=== PATIENT | female | born 1975 | race Caucasian/White ===

== ENCOUNTER 2019-10-29 13:18 | Emergency (ER) | payer OTHER, MEDICAID, SELFPAY ==
[2019-10-29] VITALS (14 sets, daily range): BP systolic 88–158; BP diastolic 52–86; PULSE 70–133; RESP 19–38; TEMP 36.4–36.8; O2SAT 97–99
--- NOTE | 2019-10-29 13:32 | ED_ITS ---
HPI - Psych <Lucinda Gunderson DO - Last Filed: 11/02/19 08:11> General Chief Complaint: Psychiatric Symptoms Stated Complaint: Out of control Time Seen by Provider: 10/29/19 13:28 Source: EMS Mode of arrival: EMS History of Present Illness HPI Narrative: Patient is a 43-year-old female brought in by police and the EMS have found in [facility] she apparently was out of control preaching running around in circles unwilling and unable to come in and be cooperative. She became combative and spitting. She was given 300 mg of IM ketamine at approximately 1:05 p.m.. She is currently under the influence of ketamine and unable to give appropriate history. No sign of trauma at this time. Very little is known about the patient. MD complaint: altered mental status Review of Systems <Lucinda Gunderson DO - Last Filed: 11/02/19 08:11> Review of Systems ROS Unobtainable: Unobtainable due to mental condition Exam <Lucinda Gunderson DO - Last Filed: 11/02/19 08:11> Initial Vital Signs Initial Vital Signs: Vital Signs Pulse Rate 132 H 10/29/19 13:24 Respiratory Rate 28 H 10/29/19 13:24 Pulse Oximetry 97 10/29/19 13:24 GENERAL: Moaning, alert HEENT: Head atraumatic,EOMI, pupils reactive, face symmetric, [moist] mucous mem branes CARDIOVASCULAR: Regular rate and rhythm without murmurs, rubs or gallops. RESPIRATORY: Breath sounds equal bilaterally, no wheezes rales or rhonchi. ABDOMEN: Soft, nontender. Normoactive bowel sounds all 4 quadrants. No guarding or rebound. EXTREMITIES: Normal range of motion, no clubbing or edema. Neurovascularly intact NEUROLOGICAL: Moving all extremities SKIN: Warm, dry, no laceration, no petechiae, no rashes or lesions. <Evangelista Peng DO - Last Filed: 10/30/19 05:35> Initial Vital Signs Initial Vital Signs: Vital Signs Pulse Rate 132 H 10/29/19 13:24 Respiratory Rate 28 H 10/29/19 13:24 Pulse Oximetry 97 10/29/19 13:24 <Kaleb Jeffries MD - Last Filed: 10/31/19 13:09> Initial Vital Signs Initial Vital Signs: Vital Signs Pulse Rate 132 H 10/29/19 13:24 Respiratory Rate 28 H 10/29/19 13:24 Pulse Oximetry 97 10/29/19 13:24 Course <Lucinda Gunderson DO - Last Filed: 11/02/19 08:11> Orders Ordered: Discontinued Medications Diphenhydramine HCl (Benadryl) 50 mg IV NOW ONE Stop: 10/29/19 14:06 Last Admin: 10/29/19 14:10 Dose: 50 mg Documented by: HARINDER Haloperidol (Haldol) 5 mg IM NOW ONE Stop: 10/29/19 14:06 Last Admin: 10/29/19 14:10 Dose: 5 mg Documented by: HARINDER Lorazepam (Ativan) 1 mg IV NOW ONE Stop: 10/29/19 13:43 Last Admin: 10/29/19 13:56 Dose: 1 mg Documented by: HARINDER Vital Signs Vital signs: Vital Signs - 8 hr 10/30/19 09:00 Pulse Rate 76 Respiratory Rate 16 Blood Pressure 131/64 Pulse Oximetry 100 <Evangelista Peng DO - Last Filed: 10/30/19 05:35> Orders Ordered: Discontinued Medications Diphenhydramine HCl (Benadryl) 50 mg IV NOW ONE Stop: 10/29/19 14:06 Last Admin: 10/29/19 14:10 Dose: 50 mg Documented by: HARINDER Haloperidol (Haldol) 5 mg IM NOW ONE Stop: 10/29/19 14:06 Last Admin: 10/29/19 14:10 Dose: 5 mg Documented by: HARINDER Lorazepam (Ativan) 1 mg IV NOW ONE Stop: 10/29/19 13:43 Last Admin: 10/29/19 13:56 Dose: 1 mg Documented by: HARINDER Vital Signs Vital signs: Vital Signs - 8 hr 10/30/19 09:00 Pulse Rate 76 Respiratory Rate 16 Blood Pressure 131/64 Pulse Oximetry 100 <Kaleb Jeffries MD - Last Filed: 10/31/19 13:09> Orders Ordered: Discontinued Medications Diphenhydramine HCl (Benadryl) 50 mg IV NOW ONE Stop: 10/29/19 14:06 Last Admin: 10/29/19 14:10 Dose: 50 mg Documented by: HARINDER Haloperidol (Haldol) 5 mg IM NOW ONE Stop: 10/29/19 14:06 Last Admin: 10/29/19 14:10 Dose: 5 mg Documented by: HARINDER Lorazepam (Ativan) 1 mg IV NOW ONE Stop: 10/29/19 13:43 Last Admin: 10/29/19 13:56 Dose: 1 mg Documented by: HARINDER Reevaluation(s) Reevaluation #1: Patient is awake alert orient times 4. Is not not combative denies any SI or HI. No auditory or visual hallucinations at this time. Is not tangential. No pressured speech. Patient is pleasant and cooperative. Time: 10:29 Consultations Consultation #1: DCR has returned this morning and, Logan, has evaluated patient and deemed that patient does not qualify for the restraint/DCR. Patient has follow-up on Tuesday. Patient is post be on lithium. I spoke with Logan that it would be advisable patient to be admitted today as medications may be only temporary sober given last night. Patient does not comply with treatment plan prior to arrival here. Time: 10:29 Vital Signs Vital signs: Vital Signs - 8 hr 10/30/19 09:00 Pulse Rate 76 Respiratory Rate 16 Blood Pressure 131/64 Pulse Oximetry 100 MDM - Psych <Lucinda Gunderson, DO - Last Filed: 11/02/19 08:11> Lab Data Attestation: I reviewed the patient's lab results. Result diagrams: 10/29/19 13:40 10/29/19 13:40 Labs: Lab Results 10/29/19 10/29/19 10/29/19 Range/Units 13:40 13:40 13:40 WBC 8.9 (4.5-11.0) X10^3/uL RBC 4.52 (4.0-5.2) X10^6/uL Hgb 13.7 (12.0-16.0) g/dL Hct 40.9 (36-46) % MCV 90.5 (80-100) fL MCH 30.3 (26-34) PG MCHC 33.4 (30-36) % RDW 13.5 (11.6-14.8) % Plt Count 461 H (150-400) X10^3/uL Neut % (Auto) 81.0 H (50-75) % Lymph % (Auto) 16.2 L (25-40) % Clar[place] % (Auto) 2.5 L (3-14) % Eos % (Auto) 0.1 L (2-4) % Baso % (Auto) 0.2 (0-2) % Neut # (Auto) 7200 H (9437-4566) /uL Lymph # (Auto) 1400 (3015-4942) /uL Clarion # (Auto) 200 (0-900) /uL Eos # (Auto) 0 (0-450) /uL Baso # (Auto) 0 (0-100) /uL Sodium 140 (137-145) mmol/L Potassium 3.5 (3.4-5.1) mmol/L Chloride 104 (98-107) mmol/L Carbon Dioxide 23 (22-32) mmol/L BUN 20 H (7-17) mg/dL Creatinine 1.08 H (0.52-1.04) mg/dL Estimated GFR 55.1 L (>60) mL/min BUN/Creatinine Ratio 18.5 (6-22) Glucose 242 H (70-100) mg/dL Calcium 9.9 (8.4-10.2) mg/dL Total Bilirubin 0.6 (0.2-1.3) mg/dL AST 30 (14-36) IU/L ALT 32 (<35) IU/L Alkaline Phosphatase 94 (38-126) U/L Total Protein 8.0 (6.3-8.2) g/dL Albumin 4.8 (3.5-5.0) g/dL Globulin 3.2 (1.7-4.1) g/dL Albumin/Globulin Ratio 1.5 (1.0-2.8) Serum , Qual (Negative) Salicylates < 1.0 (<20) mg/dL U Opiates 300ng/mL cut (Negative) Ur Oxycodone Screen (Negative) Urine Methadone Screen (Negative) Acetaminophen < 10 L (10-30) ug/mL Ur Barbiturates Screen (Negative) U Tricyclic Antidepress (Negative) Ur Phencyclidine Scrn (Negative) Ur Amphetamines Screen (Negative) U Methamphetamines Scrn (Negative) Ur MDMA Scrn (Ecstasy) (Negative) U Benzodiazepines Scrn (Negative) [place] < 0.2 L (0.6-1.2) mmol/L Urine Cocaine Screen (Negative) U Marijuana (THC) Screen (Negative) Ethyl Alcohol < 10 ( - 10) mg/dL COVID-19 PCR (Negative) 10/29/19 10/29/19 10/30/19 Range/Units 13:40 14:57 01:12 WBC (4.5-11.0) X10^3/uL RBC (4.0-5.2) X10^6/uL Hgb (12.0-16.0) g/dL Hct (36-46) % MCV (80-100) fL MCH (26-34) PG MCHC (30-36) % RDW (11.6-14.8) % Plt Count (150-400) X10^3/uL Neut % (Auto) (50-75) % Lymph % (Auto) (25-40) % Clarion % (Auto) (3-14) % Eos % (Auto) (2-4) % Baso % (Auto) (0-2) % Neut # (Auto) (9803-0692) /uL Lymph # (Auto) (2336-3508) /uL Clarion # (Auto) (0-900) /uL Eos # (Auto) (0-450) /uL Baso # (Auto) (0-100) /uL Sodium (137-145) mmol/L Potassium (3.4-5.1) mmol/L Chloride (98-107) mmol/L Carbon Dioxide (22-32) mmol/L BUN (7-17) mg/dL Creatinine (0.52-1.04) mg/dL Estimated GFR (>60) mL/min BUN/Creatinine Ratio (6-22) Glucose (70-100) mg/dL Calcium (8.4-10.2) mg/dL Total Bilirubin (0.2-1.3) mg/dL AST (14-36) IU/L ALT (<35) IU/L Alkaline Phosphatase (38-126) U/L Total Protein (6.3-8.2) g/dL Albumin (3.5-5.0) g/dL Globulin (1.7-4.1) g/dL Albumin/Globulin Ratio (1.0-2.8) Serum , Qual Negative (Negative) Salicylates (<20) mg/dL U Opiates 300ng/mL cut Positive H (Negative) Ur Oxycodone Screen Negative (Negative) Urine Methadone Screen Negative (Negative) Acetaminophen (10-30) ug/mL Ur Barbiturates Screen Negative (Negative) U Tricyclic Antidepress Negative (Negative) Ur Phencyclidine Scrn Negative (Negative) Ur Amphetamines Screen Negative (Negative) U Methamphetamines Scrn Negative (Negative) Ur MDMA Scrn (Ecstasy) Negative (Negative) U Benzodiazepines Scrn Negative (Negative) [place] (0.6-1.2) mmol/L Urine Cocaine Screen Negative (Negative) U Marijuana (THC) Screen Positive H (Negative) Ethyl Alcohol ( - 10) mg/dL COVID-19 PCR Negative (Negative) MDM Narrative Medical decision making narrative: The patient awake talking nonsense of very confused likely still under ketamine. Moving arms trying to pull out IV she is placed into soft point restraints. She is given Ativan Haldol and Benadryl to help calm her and from pulling out her IV Patient is sleeping Signed out to Dr. Peng for further medical management <Evangelista Peng, DO - Last Filed: 10/30/19 05:35> Lab Data Labs: Lab Results 10/29/19 10/29/19 10/29/19 Range/Units 13:40 13:40 13:40 WBC 8.9 (4.5-11.0) X10^3/uL RBC 4.52 (4.0-5.2) X10^6/uL Hgb 13.7 (12.0-16.0) g/dL Hct 40.9 (36-46) % MCV 90.5 (80-100) fL MCH 30.3 (26-34) PG MCHC 33.4 (30-36) % RDW 13.5 (11.6-14.8) % Plt Count 461 H (150-400) X10^3/uL Neut % (Auto) 81.0 H (50-75) % Lymph % (Auto) 16.2 L (25-40) % Clarion % (Auto) 2.5 L (3-14) % Eos % (Auto) 0.1 L (2-4) % Baso % (Auto) 0.2 (0-2) % Neut # (Auto) 7200 H (0556-9113) /uL Lymph # (Auto) 1400 (8823-1343) /uL Clarion # (Auto) 200 (0-900) /uL Eos # (Auto) 0 (0-450) /uL Baso # (Auto) 0 (0-100) /uL Sodium 140 (137-145) mmol/L Potassium 3.5 (3.4-5.1) mmol/L Chloride 104 (98-107) mmol/L Carbon Dioxide 23 (22-32) mmol/L BUN 20 H (7-17) mg/dL Creatinine 1.08 H (0.52-1.04) mg/dL Estimated GFR 55.1 L (>60) mL/min BUN/Creatinine Ratio 18.5 (6-22) Glucose 242 H (70-100) mg/dL Calcium 9.9 (8.4-10.2) mg/dL Total Bilirubin 0.6 (0.2-1.3) mg/dL AST 30 (14-36) IU/L ALT 32 (<35) IU/L Alkaline Phosphatase 94 (38-126) U/L Total Protein 8.0 (6.3-8.2) g/dL Albumin 4.8 (3.5-5.0) g/dL Globulin 3.2 (1.7-4.1) g/dL Albumin/Globulin Ratio 1.5 (1.0-2.8) Serum , Qual (Negative) Salicylates < 1.0 (<20) mg/dL U Opiates 300ng/mL cut (Negative) Ur Oxycodone Screen (Negative) Urine Methadone Screen (Negative) Acetaminophen < 10 L (10-30) ug/mL Ur Barbiturates Screen (Negative) U Tricyclic Antidepress (Negative) Ur Phencyclidine Scrn (Negative) Ur Amphetamines Screen (Negative) U Methamphetamines Scrn (Negative) Ur MDMA Scrn (Ecstasy) (Negative) U Benzodiazepines Scrn (Negative) [place] < 0.2 L (0.6-1.2) mmol/L Urine Cocaine Screen (Negative) U Marijuana (THC) Screen (Negative) Ethyl Alcohol < 10 ( - 10) mg/dL COVID-19 PCR (Negative) 10/29/19 10/29/19 10/30/19 Range/Units 13:40 14:57 01:12 WBC (4.5-11.0) X10^3/uL RBC (4.0-5.2) X10^6/uL Hgb (12.0-16.0) g/dL Hct (36-46) % MCV (80-100) fL MCH (26-34) PG MCHC (30-36) % RDW (11.6-14.8) % Plt Count (150-400) X10^3/uL Neut % (Auto) (50-75) % Lymph % (Auto) (25-40) % Clar[place] % (Auto) (3-14) % Eos % (Auto) (2-4) % Baso % (Auto) (0-2) % Neut # (Auto) (7857-9025) /uL Lymph # (Auto) (4203-5681) /uL Clarion # (Auto) (0-900) /uL Eos # (Auto) (0-450) /uL Baso # (Auto) (0-100) /uL Sodium (137-145) mmol/L Potassium (3.4-5.1) mmol/L Chloride (98-107) mmol/L Carbon Dioxide (22-32) mmol/L BUN (7-17) mg/dL Creatinine (0.52-1.04) mg/dL Estimated GFR (>60) mL/min BUN/Creatinine Ratio (6-22) Glucose (70-100) mg/dL Calcium (8.4-10.2) mg/dL Total Bilirubin (0.2-1.3) mg/dL AST (14-36) IU/L ALT (<35) IU/L Alkaline Phosphatase (38-126) U/L Total Protein (6.3-8.2) g/dL Albumin (3.5-5.0) g/dL Globulin (1.7-4.1) g/dL Albumin/Globulin Ratio (1.0-2.8) Serum , Qual Negative (Negative) Salicylates (<20) mg/dL U Opiates 300ng/mL cut Positive H (Negative) Ur Oxycodone Screen Negative (Negative) Urine Methadone Screen Negative (Negative) Acetaminophen (10-30) ug/mL Ur Barbiturates Screen Negative (Negative) U Tricyclic Antidepress Negative (Negative) Ur Phencyclidine Scrn Negative (Negative) Ur Amphetamines Screen Negative (Negative) U Methamphetamines Scrn Negative (Negative) Ur MDMA Scrn (Ecstasy) Negative (Negative) U Benzodiazepines Scrn Negative (Negative) [place] (0.6-1.2) mmol/L Urine Cocaine Screen Negative (Negative) U Marijuana (THC) Screen Positive H (Negative) Ethyl Alcohol ( - 10) mg/dL COVID-19 PCR Negative (Negative) MDM Narrative Medical decision making narrative: Dr Peng: Received turned over. Reviewed patient's history and physical. Patient arrived with minimal past medical history. When I evaluated the patient she was alert. Oriented to place and year. She did stay that she lived on [facility] but would not provide any other information regarding her living situation. It appears that she has an ex- in 2 kids however I am unsure if she lives with any of these individuals. I am unsure as to how long she has been in the local area. She states she does remember why she is here. She states that she was in [facility] and made many comments about ?free speech ?she states that she is here because individuals do not like which she has to say. She states that since November of last year she ?found she is is ?she states that that event happened because ?the stars aligned ?she states that since then she has this has been speaking to her and threw her. She would not provide any specific information about what was being said to her or what she was saying. She is very tangential with regard to this. Would not stay on topic. She did mention that she has been admitted to the hospital in the past because Oren has been talking to her. She would not provide any specific information with regard to this. Patient states she is not suicidal. Not homicidal. She feels like she does not need to be here in the hospital. She says that she does not know why she keeps ending up in the hospital with IV is every time she starts to tell individuals when she is is telling her. Patient is medically cleared. She is positive for opioids and THC. Patient states she does not take any medications. I am unsure where the opioids in her urine would be coming from. She was not given any opioid medication by police or in this facility. Dr Peng 0530: Patient has continued to remain calm. Her COVID-19 test was negative. Patient was evaluated by DCR virtually. I did discuss the case with him over the phone. He agrees that the patient meets criteria for involuntary admission given grave disability however he was unable to secure a bed for her this evening. I do feel the patient is unsafe being discharged home. Plan will be to keep the patient here overnight. She has not made any attempt to leave the facility. Social work consult has been placed. Well really engage with social Work and DCR later this morning. Care turned over to dr Jeffries. <Kaleb Jeffries MD - Last Filed: 10/31/19 13:09> Lab Data Labs: Lab Results 10/29/19 10/29/19 10/29/19 Range/Units 13:40 13:40 13:40 WBC 8.9 (4.5-11.0) X10^3/uL RBC 4.52 (4.0-5.2) X10^6/uL Hgb 13.7 (12.0-16.0) g/dL Hct 40.9 (36-46) % MCV 90.5 (80-100) fL MCH 30.3 (26-34) PG MCHC 33.4 (30-36) % RDW 13.5 (11.6-14.8) % Plt Count 461 H (150-400) X10^3/uL Neut % (Auto) 81.0 H (50-75) % Lymph % (Auto) 16.2 L (25-40) % Clarion % (Auto) 2.5 L (3-14) % Eos % (Auto) 0.1 L (2-4) % Baso % (Auto) 0.2 (0-2) % Neut # (Auto) 7200 H (1948-2142) /uL Lymph # (Auto) 1400 (7602-6032) /uL Clarion # (Auto) 200 (0-900) /uL Eos # (Auto) 0 (0-450) /uL Baso # (Auto) 0 (0-100) /uL Sodium 140 (137-145) mmol/L Potassium 3.5 (3.4-5.1) mmol/L Chloride 104 (98-107) mmol/L Carbon Dioxide 23 (22-32) mmol/L BUN 20 H (7-17) mg/dL Creatinine 1.08 H (0.52-1.04) mg/dL Estimated GFR 55.1 L (>60) mL/min BUN/Creatinine Ratio 18.5 (6-22) Glucose 242 H (70-100) mg/dL Calcium 9.9 (8.4-10.2) mg/dL Total Bilirubin 0.6 (0.2-1.3) mg/dL AST 30 (14-36) IU/L ALT 32 (<35) IU/L Alkaline Phosphatase 94 (38-126) U/L Total Protein 8.0 (6.3-8.2) g/dL Albumin 4.8 (3.5-5.0) g/dL Globulin 3.2 (1.7-4.1) g/dL Albumin/Globulin Ratio 1.5 (1.0-2.8) Serum , Qual (Negative) Salicylates < 1.0 (<20) mg/dL U Opiates 300ng/mL cut (Negative) Ur Oxycodone Screen (Negative) Urine Methadone Screen (Negative) Acetaminophen < 10 L (10-30) ug/mL Ur Barbiturates Screen (Negative) U Tricyclic Antidepress (Negative) Ur Phencyclidine Scrn (Negative) Ur Amphetamines Screen (Negative) U Methamphetamines Scrn (Negative) Ur MDMA Scrn (Ecstasy) (Negative) U Benzodiazepines Scrn (Negative) [place] < 0.2 L (0.6-1.2) mmol/L Urine Cocaine Screen (Negative) U Marijuana (THC) Screen (Negative) Ethyl Alcohol < 10 ( - 10) mg/dL COVID-19 PCR (Negative) 10/29/19 10/29/19 10/30/19 Range/Units 13:40 14:57 01:12 WBC (4.5-11.0) X10^3/uL RBC (4.0-5.2) X10^6/uL Hgb (12.0-16.0) g/dL Hct (36-46) % MCV (80-100) fL MCH (26-34) PG MCHC (30-36) % RDW (11.6-14.8) % Plt Count (150-400) X10^3/uL Neut % (Auto) (50-75) % Lymph % (Auto) (25-40) % Clarion % (Auto) (3-14) % Eos % (Auto) (2-4) % Baso % (Auto) (0-2) % Neut # (Auto) (3440-4177) /uL Lymph # (Auto) (1628-3952) /uL Clarion # (Auto) (0-900) /uL Eos # (Auto) (0-450) /uL Baso # (Auto) (0-100) /uL Sodium (137-145) mmol/L Potassium (3.4-5.1) mmol/L Chloride (98-107) mmol/L Carbon Dioxide (22-32) mmol/L BUN (7-17) mg/dL Creatinine (0.52-1.04) mg/dL Estimated GFR (>60) mL/min BUN/Creatinine Ratio (6-22) Glucose (70-100) mg/dL Calcium (8.4-10.2) mg/dL Total Bilirubin (0.2-1.3) mg/dL AST (14-36) IU/L ALT (<35) IU/L Alkaline Phosphatase (38-126) U/L Total Protein (6.3-8.2) g/dL Albumin (3.5-5.0) g/dL Globulin (1.7-4.1) g/dL Albumin/Globulin Ratio (1.0-2.8) Serum , Qual Negative (Negative) Salicylates (<20) mg/dL U Opiates 300ng/mL cut Positive H (Negative) Ur Oxycodone Screen Negative (Negative) Urine Methadone Screen Negative (Negative) Acetaminophen (10-30) ug/mL Ur Barbiturates Screen Negative (Negative) U Tricyclic Antidepress Negative (Negative) Ur Phencyclidine Scrn Negative (Negative) Ur Amphetamines Screen Negative (Negative) U Methamphetamines Scrn Negative (Negative) Ur MDMA Scrn (Ecstasy) Negative (Negative) U Benzodiazepines Scrn Negative (Negative) [place] (0.6-1.2) mmol/L Urine Cocaine Screen Negative (Negative) U Marijuana (THC) Screen Positive H (Negative) Ethyl Alcohol ( - 10) mg/dL COVID-19 PCR Negative (Negative) MDM Narrative Medical decision making narrative: Time 10:31 a.m., I implored with DCR for admit due to patient's severe psychosis last night and patient is noncompliant with treatment at home and medications. Patient likely to rebound Restraint [id number] <Lucinda Gunderson, - Last Filed: 11/02/19 08:11> Restraint [id number] Evaluation [id number] #1: Patient Appearance: Unkempt Level of Consciousness: Disoriented, Inappropriate and Restless Speech Pattern: Aphasia/Receptive, Confabulation, Garbled and Rambling Mood Description: Expansive Thought Process: Confabulating Cardiac: Regular Rate Circulation: Moves all extremities, peripheral pulses palpable and Skin warm and dry Behavior necessitating restraint: Pulling at lines/tubes Discharge Plan Departure Patient Disposition: Home Clinical Impression: Acute psychosis Discharge Date/Time: 10/30/19 10:35 Instructions: DI for Psychosis Activity Restrictions/Additional Instructions: Call provided services provided by DCR today, Logan has provided resources. Be sure to follow-up and to restart your lithium and your therapy sessions. Return if worse or for any questions or concerns.
[2019-10-29 13:53] LABS: Add Manual Diff / Slide Review NO; Basophils Absolute Auto 0 /uL (0-100); Basophils Percent Auto 0.2 % (0-2); Eosinophils Absolute Auto 0 /uL (0-450); Eosinophils Percent Auto 0.1 % (2-4); Hematocrit 40.9 % (36-46); Hemoglobin 13.7 g/dL (12.0-16.0); Lymphocytes Absolute Auto 1400 /uL (1100-4500); Lymphocytes Percent Auto 16.2 % (25-40); Mean Corpuscular HGB Conc 33.4 % (30-36); Mean Corpuscular Hemoglobin 30.3 PG (26-34); Mean Corpuscular Volume 90.5 fL (80-100); Monocytes Absolute Auto 200 /uL (0-900); Monocytes Percent Auto 2.5 % (3-14); Neutrophils Absolute Auto 7200 /uL (1500-7000); Platelet Count 461 X10^3/uL (150-400); Red Blood Cell Count 4.52 X10^6/uL (4.0-5.2); Red Cell Distribution Width 13.5 % (11.6-14.8); White Blood Cell Count 8.9 X10^3/uL (4.5-11.0)
[2019-10-29] MEDS: LORazepam 2 MG/ML INJ 1 MG IV (13:56)
[2019-10-29 14:07] LABS: Acetaminophen < 10 ug/mL (10-30); Alanine Aminotransferase 32 IU/L (<35); Albumin 4.8 g/dL (3.5-5.0); Albumin Globulin Ratio 1.5 (1.0-2.8); Alkaline Phosphatase 94 U/L (38-126); Aspartate Aminotransferase 30 IU/L (14-36); BUN Creatinine Ratio 18.5 (6-22); Bilirubin Total 0.6 mg/dL (0.2-1.3); Blood Urea Nitrogen 20 mg/dL (7-17); Calcium 9.9 mg/dL (8.4-10.2); Carbon Dioxide 23 mmol/L (22-32); Chloride 104 mmol/L (98-107); Estimated Glomerular Filt Rate 55.1 mL/min (>60); Ethanol (ETOH) < 10 mg/dL; Globulin 3.2 g/dL (1.7-4.1); Glucose 242 mg/dL (70-100); HEMOLYSIS 31 (0-50); Potassium 3.5 mmol/L (3.4-5.1); Salicylate < 1.0 mg/dL (<20); Sodium 140 mmol/L (137-145)
[2019-10-29] MEDS: HALOPERIDOL 5 MG/ML VIAL IM (14:10)
[2019-10-29] MEDS: diphenhydrAMINE 50 MG/ML VIAL IV (14:10)
--- NOTE | 2019-10-29 14:14 | PC.NURSE ---
TWYLA Cesar gave shot of Haldol to pt. Pt stated what is that for? are you trying to exercise the demon out of me? The patient then went on to talk about the 2nd coming of Oren and how she doesnt think he is going to come back riding a white unicorn
--- NOTE | 2019-10-29 14:21 | PC.NURSE ---
Hermelinda from [employer] called and stated that they confirmed the name and of the pt.
[2019-10-29 14:30] LABS: Lithium < 0.2 mmol/L (0.6-1.2)
--- NOTE | 2019-10-29 14:37 | PC.NURSE ---
Hermelinda from [employer] called and stated that the patients backpack and bicycle are at the police station and will be available to burr picker when the patient is discharged
[2019-10-29 14:44] LABS: Pregnancy Test Serum,Qual Negative (Negative)
--- NOTE | 2019-10-29 14:44 | CM.SWNOTE ---
Addendum entered by CELESTINA Ruggiero 10/29/19 15:35: ADD: Return call from [facility] confirming they are aware of pt and that she has been working with their casemanager for ongoing resource needs. Pt remains currently homeless, has been on [facility] since about June 2019 this year and pt has still not provided them with any family contact information or close local friend support. Pt returned to [facility] after being detained for Involuntary Inpt MH tx at [facility] and has been utilizing their homeless COVID half-way but this is no longer a resource at this time as it was temporary half-way. Staff provided DIRECTOR OF CONSERVATION with [facility] DCR [employer] for [facility] contact info Kayce [phone] as pt may be on a Least Restrictive Order. DIRECTOR OF CONSERVATION contacted Kayce and left msg requesting call back to determine if pt on LRO and any further information towards ongoing d/c needs. DIRECTOR OF CONSERVATION updated RN and provided [facility] number to call DCR to be dispatched when pt medically cleared. DIRECTOR OF CONSERVATION to follow in the morning to determine if pt still remains in the hospital ED. BF Original Note: Patient is a 43 year old female who was admitted to [facility] ED on 10/29/19 for Being Out of Control. 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 Pt unable to provide much historical or background information and continues to talk about mosque information. Pt not very cooperative and given chemical and soft wrist restraints for safety (Ativan, Haldol, Benadryl, Ketamine provided for sedation) DIRECTOR OF CONSERVATION called [facility] ([phone]) for an MIS check and pt has hx of having Police called at the end of June 2019 this year due to pt's behaviors on [facility] at the [facility] and then flight lifted to [facility] in [place] where DCR was dispatched and detained and accepted at [facility] MH unit at [facility] for an extended amount of time due to mental health needs and then discharged back to [facility]. Pt likely in a homeless type situation but unclear at this time. No contacts currently listed for the pt and due to sedation needs and inability for pt to currently provide accurate historical information, DIRECTOR OF CONSERVATION called [facility] [phone] and left msg to inquire if any further historical information or contacts could be provided for d/c planning purposes. Pt currently not medically cleared and recently sedated for safety and therefore not able to be assessed at this time and not quite appropriate for DCR to be dispatched yet until further medical workup can be preformed and pt medically cleared. DIRECTOR OF CONSERVATION updated RN and will check back in with RN prior to end of shift in an hour. Plan: DIRECTOR OF CONSERVATION to follow in an hour with RN to determine if pt more medically appropriate for assessment by either DIRECTOR OF CONSERVATION or DCR based on pt's ongoing presentation. DCR likely will need to be contacted after DIRECTOR OF CONSERVATION shift ends at 1600. CELESTINA Ruggiero
--- NOTE | 2019-10-29 15:02 | PC.NURSE ---
Pt up to bedside commode with RN, DAVID/Tanater at bedside. Pt contracts to safety of self, staff, and others. Pt following commands and aware of situation though states I do not deserve to be here. She denies being combative with PD and medics. Pt does still state God is talking through her and has delusional thinking. At this time restraints removed because pt following commands, participating in care, and agrees to safety. Pt offered juice, water, and milk per request. Diet ordered. Urine sent to lab.
[2019-10-29 15:27] LABS: UR Morphine/Opiate cutoff 300 Positive (Negative); Ur Creatinine Normal (Normal); Ur Specific Gravity Normal (Normal); Urine Amphetamines Negative (Negative); Urine Barbiturates Negative (Negative); Urine Benzodiazepines Negative (Negative); Urine Cocaine Negative (Negative); Urine MDMA Negative (Negative); Urine Methadone Negative (Negative); Urine Methamphetamines Negative (Negative); Urine Oxycodone Negative (Negative); Urine Phencyclidine Negative (Negative); Urine Tetrahydrocannabinol Positive (Negative); Urine Tricyclic Antidepressant Negative (Negative); Urine pH Normal (Normal)
--- NOTE | 2019-10-29 16:24 | PC.NURSE ---
Robert Montoya on Pt 1:1 @ 7350 Pt is lying on gurney calm and quiet. Eyes closed,chest rising and falling
--- NOTE | 2019-10-29 17:02 | PC.NURSE ---
Eyes closed chest rising and falling
--- NOTE | 2019-10-29 18:34 | PC.NURSE ---
Pt moved from Rm 6 to Rm 13. Pt cooperative, resting with eys closed. Warm blanket and beverage offered
--- NOTE | 2019-10-29 19:50 | PC.NURSE ---
Assuming care of patient at 1900 with TWYLA Fraga. Patient currently asleep with elvia Contreras outside room.
--- NOTE | 2019-10-29 20:15 | PC.NURSE ---
Pt talking to self or preaching sermons?
--- NOTE | 2019-10-29 20:22 | PC.NURSE ---
Pt claims God is speaking through her and she is speaking prophesy of God. wants to know why she is here and when she is leaving. The Dr is currently in the speaking with the Pt
--- NOTE | 2019-10-29 22:31 | PC.NURSE ---
Pt speaking with DCR in via zoom meeting
--- NOTE | 2019-10-29 22:40 | PC.NURSE ---
Pt finished speaking with DCR via Zoom. Pt agitated after the conversation
--- NOTE | 2019-10-29 23:43 | PC.NURSE ---
I just spoke to Latrell with DCR. he is waiting for a response from two hospitals to see if they have beds. provider aware and no new orders at this time.
--- NOTE | 2019-10-30 00:55 | PC.NURSE ---
I spoke with Clarissa at [facility] in [place]. They requested a rapid Covid test. they will call back for results and then touch base with DCR. provider aware.
--- NOTE | 2019-10-30 01:05 | PC.NURSE ---
I spoke with David from [facility] in [place] for [id number]. He stated he would contact their provider and be in touch with DCR.
[2019-10-30 01:08] VITALS: BP 124/74; PULSE 60; RESP 16; O2SAT 99
--- NOTE | 2019-10-30 01:17 | PC.NURSE ---
Vitals taken and Covid test collected. Pt cooperative and polite. Beverages and warm blankets provided
[2019-10-30 02:11] LABS: COVID19 -Nasal RAPID Negative (Negative)
--- NOTE | 2019-10-30 04:51 | PC.NURSE ---
pt sleeping calmly
--- NOTE | 2019-10-30 07:50 | PC.NURSE ---
Pt. woke up agitated that she was still here at the hospital and stated that she wanted to leave. Pt. is not actively trying to exit room though. Pt. requested to use the restroom, and afterwards laid down and was speaking/preaching to herself angerly. I offered her breakfast, which she is currently eating.
--- NOTE | 2019-10-30 08:35 | PC.NURSE ---
Pt. is currently sitting up , speaking with the DCR.
[2019-10-30 09:00] VITALS: BP 131/64; PULSE 76; RESP 16; O2SAT 100
--- NOTE | 2019-10-30 10:05 | PC.NURSE ---
Pt. is allowed to don regular clothes, although a scrub top was given due to Pt.s shirts being cut up. Pt. used the restroom and got dressed. She is currently waiting for discharge and I will walk her over to police station so that she can gather her belongings there.
== END 2019-10-30 10:35 | disposition home or self-care (01) ==
PROVIDERS: Emergency Medicine; Emergency Provider Emergency Medicine
DX: F23 Brief psychotic disorder (principal); Z11.59 Encounter for screening for other viral diseases; R45.1 Restlessness and agitation
CPT/HCPCS: 36415; 80053; 80178; 80305; 80320; 80329; 84703; 85025; 87635; 96372; 96374; 96375; 99285; G0480; J1200; J1630; J2060

== ENCOUNTER 2019-11-04 10:59 | Emergency (ER) | payer OTHER, MEDICAID, SELFPAY ==
--- NOTE | 2019-11-04 11:12 | ED_ITS ---
HPI - Altered Mental Status General Chief Complaint: Psychiatric Symptoms Stated Complaint: Suicidal ideation Time Seen by Provider: 11/04/19 11:07 Source: patient, old records reviewed and police History of Present Illness HPI narrative: Patient is a 43-year-old female brought in by police for hallucinations. 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 She says that she does not want hurt herself she has not harmed anyone else she was on some he has property but she is not being charged with trespassing. She is unclear why she keeps being brought to the hospital which she does not have a medical problems. She 10/29/2019 for extreme hallucination she required ketamine to be brought in along with Haldol and Benadryl when she got here. She is evaluated by the DCR been deemed is not involuntary and was released home. She says she does not what medicines she does not need it nor does not help. She really came to and a [facility] to get him out for an intake get her government check unfortunately she did not have enough money to get back on the [place]. So she has been here for the last few days. She has money today and would like to trying get back to [facility]. Review of Systems Review of Systems Narrative: GENERAL: Denies chills,fever HEENT: Denies throat pain RESPIRATORY: Denies dyspnea, cough, wheezing CARDIOVASCULAR: Denies chest pain, palpitations GASTROINTESTINAL: Denies nausea, vomiting MUSCULOSKELETAL: Denies extremity pain, injury SKIN: No rash, no laceration, no pruritus NEUROLOGIC: Denies weakness, dizziness, headache, numbness 8 point review of systems is negative except for those stated above and HPI Psychiatric Psychiatric: Reports as per HPI and Reports anxiety Patient History Social History Smoking Status: Unknown if ever smoked Exam Initial Vital Signs Initial Vital Signs: Vital Signs Temperature 100.4 F H 11/04/19 11:21 Pulse Rate 119 H 11/04/19 11:21 Respiratory Rate 23 11/04/19 11:21 Blood Pressure 153/97 H 11/04/19 11:21 Pulse Oximetry 100 11/04/19 11:21 GENERAL: Alert dirty female speaking quite fast and pressured CARDIOVASCULAR: peripheral pulses in tact, cap refill <2 sec RESPIRATORY: No respiratory distress, speaks in full sentences without difficulty EXTREMITIES: Normal range of motion, no clubbing or edema. Neurovascularly intact NEUROLOGICAL: Cranial nerves II through XII grossly intact. Normal gait and speech. SKIN: Warm, dry, no petechiae, no rashes or lesions. Psych Appearance: disheveled Mental Status: mental status grossly normal Speech and Movement: agitated, speech clear and pressured speech Mood: anxious mood Affect: anxious affect Attitude: cooperative Judgment: fair Course Vital Signs Vital signs: Vital Signs - 8 hr 11/04/19 11:21 11/04/19 11:42 Temperature 100.4 F H 99.4 F Pulse Rate 119 H 113 H Respiratory Rate 23 22 Blood Pressure 153/97 H 150/91 H Pulse Oximetry 100 100 MDM - Altered Mental Status MDM Narrative Medical decision making narrative: Patient says that she is possessed but is not causing harm to anyone or herself. She is really trying to get back to [facility]. She overall does make sense, and she seems logical. She is quite anxious and nervous about being in the hospital. At this time is does not meet involuntary criteria. Once I have told her that I will release her she immediately calmed down and has relaxed she is given some food. The police will drive her to the [facility] terminal Discharge Plan Departure Patient Disposition: Home Clinical Impression: Hallucination Discharge Date/Time: 11/04/19 11:45 Instructions: Psychosis Activity Restrictions/Additional Instructions: *You have been diagnosed with hallucinations *What to do: *Continue to take medications as directed *Follow up with your primary care provider in 2-3 days *Return to ER if you should have any new, worsening or concerning symptoms Referrals: [facility] [Outside]
[2019-11-04 11:21] VITALS: BP 153/97; PULSE 119; RESP 23; TEMP 38; O2SAT 100
--- NOTE | 2019-11-04 11:26 | PC.NURSE ---
Patient sitting outside of room 13 attached to SPO2 monitor, and blood pressure while eating a snack. Patient denies any other needs at this time. Patient agrees to wait until her vital signs have improved and police return with her bicycle.
[2019-11-04 11:42] VITALS: BP 150/91; PULSE 113; RESP 22; TEMP 37.4; O2SAT 100
== END 2019-11-04 11:45 | disposition home or self-care (01) ==
LOC: ED 11:45
PROVIDERS: Emergency Provider Emergency Medicine
DX: R44.3 Hallucinations, unspecified (principal)
CPT/HCPCS: 99282; 99283